=== PATIENT | male | born 1985 | race Two or more races ===

== ENCOUNTER 2017-04-10 23:51 | Emergency (ER) | payer OTHER ==
[~2017-04-10] VITALS: Ht 175.3 cm; Wt 108.9 kg
[2017-04-10 23:51] VITALS: BP 109/73
== END 2017-04-11 00:51 | disposition home or self-care (01) ==
LOC: ER 23:52
DX: M54.5 Low back pain (principal); M62.830 Muscle spasm of back; F17.200 Nicotine dependence, unspecified, uncomplicated; X50.0XXA Overexertion from strenuous movement or load, initial encounter; Y93.89 Activity, other specified; Y92.89 Other specified places as the place of occurrence of the external cause; Y99.0 Civilian activity done for income or pay
CPT/HCPCS: 99283; A4606; Z7610

== ENCOUNTER 2018-04-13 18:46 | Emergency (ER) | payer SELFPAY ==
[~2018-04-13] VITALS: Ht 175.3 cm; Wt 111.1 kg
[2018-04-13 19:30] VITALS: BP 134/92
[2018-04-13] MEDS ORDERED: KETOROLAC TROMETHAMINE INJ 30 MG/ML VIAL IM ONE (20:00)
[2018-04-13] MEDS ORDERED: KETOROLAC TROMETHAMINE INJ 30 MG/ML VIAL ONE (20:10)
== END 2018-04-13 20:19 | disposition home or self-care (01) ==
LOC: ER 18:47
DX: G44.209 Tension-type headache, unspecified, not intractable (principal); F17.210 Nicotine dependence, cigarettes, uncomplicated
CPT/HCPCS: A4606; J1885; Z7610

== ENCOUNTER 2019-01-02 10:41 | Emergency (ER) | payer SELFPAY ==
[~2019-01-02] VITALS: Ht 180.3 cm; Wt 108.9 kg
[2019-01-02 10:48] VITALS: BP 120/69
[2019-01-02] MEDS ORDERED: METHOCARBAMOL (500MG) 500 MG TABLET PO ONE (11:30)
[2019-01-02] MEDS ORDERED: IBUPROFEN 400 MG TABLET PO ONE (11:30)
[2019-01-02] MEDS ORDERED: METHOCARBAMOL (500MG) 500 MG TABLET ONE (11:58)
[2019-01-02] MEDS ORDERED: IBUPROFEN 400 MG TABLET ONE (11:58)
== END 2019-01-02 12:51 | disposition home or self-care (01) ==
LOC: ER 10:41
DX: M54.5 Low back pain (principal); R07.81 Pleurodynia; F17.200 Nicotine dependence, unspecified, uncomplicated
CPT/HCPCS: 71100-TC; 72100-TC

== ENCOUNTER 2020-10-26 11:25 | Emergency (ER) | payer SELFPAY ==
[~2020-10-26] VITALS: Ht 175.3 cm; Wt 72.6 kg
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
[2020-10-26] MEDS ORDERED: IBUP-1957 PO (12:27)
[2020-10-26] MEDS ORDERED: IBUPROFEN 600 MG TABLET PO ONE (12:30)
[2020-10-26] MEDS ORDERED: IBUPROFEN 600 MG TABLET ONE (12:32)
[2020-10-26 12:37] VITALS: BP 129/89
--- NOTE | 2020-10-26 12:38 | NUR ---
PT. VERBALIZED UNDERSTANDING OF AFTERCARE INSTRUCTIONS.Patient discharged to home in stable condition. Written and verbal after care instructions given. Patient verbalizes understanding of instruction.
[2020-10-26] MEDS ORDERED: ANESTHESIA TRAY IN PYXIS 1 EA TRAY MC ONE (15:45)
== END 2020-10-26 13:04 | disposition home or self-care (01) ==
LOC: ER 11:26
DX: S62.396A Other fracture of fifth metacarpal bone, right hand, initial encounter for closed fracture (principal); S62.397A Other fracture of fifth metacarpal bone, left hand, initial encounter for closed fracture; F17.200 Nicotine dependence, unspecified, uncomplicated; W22.8XXA Striking against or struck by other objects, initial encounter; Y93.89 Activity, other specified; Y92.89 Other specified places as the place of occurrence of the external cause; Y99.8 Other external cause status
CPT/HCPCS: 73130-TC

== ENCOUNTER 2020-10-30 03:02 | Emergency (ER) | payer SELFPAY ==
[~2020-10-30] VITALS: Ht 175.3 cm; Wt 117.0 kg
[~2020-10-30 03:02] MED LIST: IBUP-1957 PO
[2020-10-30 03:06] VITALS: BP 127/77
--- NOTE | 2020-10-30 03:20 | NUR ---
OLD ALIZE WARPPING REMOVED, AND APPLIED NEW ALIZE BANDAGES TO BILATERAL HANDS. BLOOD PERFUSION AND PULSE EQUAL AND STRONG BILATERALLY. NO DISCOLORATION NOTED.
[2020-10-30] MEDS ORDERED: OXYC-132 PO (03:21)
[2020-10-30] MEDS ORDERED: oxyCODONE/APAP (5/325 MG) 1 UDTAB TABLET ONE (03:23)
[2020-10-30] MEDS: oxyCODONE/APAP (5/325 MG) 1 UDTAB TABLET PO ONE (03:28)
--- NOTE | 2020-10-30 03:30 | NUR ---
Patient discharged to home in stable condition. Written and verbal after care instructions given. Patient verbalizes understanding of instruction.
== END 2020-10-30 03:30 | disposition home or self-care (01) ==
LOC: ER 03:02
DX: S62.396D Other fracture of fifth metacarpal bone, right hand, subsequent encounter for fracture with routine healing (principal); S62.397D Other fracture of fifth metacarpal bone, left hand, subsequent encounter for fracture with routine healing; F17.200 Nicotine dependence, unspecified, uncomplicated; W22.8XXD Striking against or struck by other objects, subsequent encounter

== ENCOUNTER 2020-11-08 21:59 | Emergency (ER) | payer SELFPAY ==
[~2020-11-08] VITALS: Ht 175.3 cm; Wt 117.0 kg
[~2020-11-08 21:59] MED LIST changes: +OXYC-132 PO
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
--- NOTE | 2020-11-08 23:45 | NUR ---
Patient discharged to home in stable condition. Written and verbal after care instructions given. Patient verbalizes understanding of instruction.Pt ambulatory with a steady gait
[2020-11-08 23:54] VITALS: BP 126/78
== END 2020-11-09 00:07 | disposition home or self-care (01) ==
LOC: ER 21:59
DX: S62.396D Other fracture of fifth metacarpal bone, right hand, subsequent encounter for fracture with routine healing (principal); S62.397D Other fracture of fifth metacarpal bone, left hand, subsequent encounter for fracture with routine healing; M79.641 Pain in right hand; F17.200 Nicotine dependence, unspecified, uncomplicated; W22.8XXD Striking against or struck by other objects, subsequent encounter
CPT/HCPCS: 73130-TC

== ENCOUNTER 2020-11-23 13:03 | Emergency (ER) | payer SELFPAY ==
[~2020-11-23] VITALS: Ht 175.3 cm; Wt 117.5 kg
[2020-11-23 13:12] VITALS: BP 118/72
--- NOTE | 2020-11-23 13:24 | NUR ---
Patient discharged to home in stable condition. Written and verbal after care instructions given. Patient verbalizes understanding of instruction.
== END 2020-11-23 13:23 | disposition home or self-care (01) ==
LOC: ER 13:03
DX: S43.431A Superior glenoid labrum lesion of right shoulder, initial encounter (principal); F17.200 Nicotine dependence, unspecified, uncomplicated; Z79.899 Other long term (current) drug therapy; X58.XXXA Exposure to other specified factors, initial encounter; Y93.89 Activity, other specified; Y92.89 Other specified places as the place of occurrence of the external cause; Y99.8 Other external cause status

== ENCOUNTER 2021-09-29 00:18 | Emergency (ER) | payer SELFPAY ==
[~2021-09-29] VITALS: Ht 175.3 cm; Wt 117.9 kg
--- NOTE | 2021-09-29 00:41 | NUR ---
pt bibs c/o ruq x 2 days. pt a/o x 4, rr even no sob noted.
--- NOTE | 2021-09-29 00:42 | NUR ---
BLOOD COLLECTED SENT TO LAB
[2021-09-29 00:43] VITALS: BP 128/70
--- NOTE | 2021-09-29 00:52 | NUR ---
US AT BEDSIDE
[2021-09-29] MEDS ORDERED: MORPHINE SULFATE INJ 2 MG/ML DISP.SYRIN IV ONE (01:00)
[2021-09-29 01:04] LABS: BASOPHILS # (AUTO) 0.1 K/uL (0.0-0.2); BASOPHILS % (AUTO) 0.5 % (0.0-2.0); EOSINOPHILS % (AUTO) 4.4 % (0.0-6.0); HEMATOCRIT 45 % (39-51); HEMOGLOBIN 15.1 g/dL (13.5-17.5); LYMPHOCYTES # (AUTO) 4.1 K/uL (0.8-4.8); LYMPHOCYTES % (AUTO) 32.2 % (20.0-44.0); MEAN CORPUSCULAR HGB CONC 34 g/dl (31.0-36.0); MEAN CORPUSCULAR VOLUME 85 fL (80-96); MONOCYTES # (AUTO) 0.9 K/uL (0.1-1.30); MONOCYTES % (AUTO) 7.1 % (2.0-12.0); NEUTROPHILS % (AUTO) 55.8 % (43.0-81.0); PLATELET COUNT (AUTO) 346 K/uL (150-450); RED BLOOD CELL COUNT(AUTO) 5.25 MIL/uL (4.5-6.0); WHITE BLOOD COUNT (AUTO) 12.6 K/uL (4.3-11.0)
[2021-09-29] MEDS ORDERED: MORPHINE SULFATE INJ 4 MG/ML DISP.SYRIN ONE (01:04)
[2021-09-29 01:16] LABS: CALCIUM, SERUM 9.1 mg/dL (8.5-10.1); POTASSIUM 3.8 mmol/L (3.5-5.1)
[2021-09-29 01:22] LABS: ALBUMIN 3.6 g/dL (3.4-5.0); BILIRUBIN,TOTAL 0.2 mg/dL (0.2-1.0); TOTAL PROTEIN, SERUM 7.7 g/dL (6.4-8.2)
[2021-09-29] MEDS ORDERED: KETO10TA2 PO (01:37)
--- NOTE | 2021-09-29 02:02 | NUR ---
Patient discharged to home in stable condition. Written and verbal after care instructions given. Patient verbalizes understanding of instruction. IV removed. Catheter intact and site benign. Pressure and 4x4 applied to site. No bleeding noted.
== END 2021-09-29 02:03 | disposition home or self-care (01) ==
LOC: ER 00:19
DX: R10.11 Right upper quadrant pain (principal); F17.200 Nicotine dependence, unspecified, uncomplicated
CPT/HCPCS: 36415; 76705; 80048; 80076; 83690; 85025; 96374; 99284; J2270

== ENCOUNTER 2021-10-03 00:31 | Emergency (ER) | payer SELFPAY ==
[~2021-10-03] VITALS: Ht 175.3 cm; Wt 117.9 kg
[~2021-10-03 00:31] MED LIST changes: +KETO10TA2 PO
[2021-10-03 01:12] VITALS: BP 121/72
[2021-10-03] MEDS ORDERED: ACYC-108 PO (01:33)
[2021-10-03] MEDS ORDERED: GABA-536 PO (01:33)
[2021-10-03] MEDS ORDERED: PRED50TA PO (01:33)
== END 2021-10-03 01:42 | disposition home or self-care (01) ==
LOC: ER 00:50
DX: B02.9 Zoster without complications (principal); F17.200 Nicotine dependence, unspecified, uncomplicated; Z79.899 Other long term (current) drug therapy

== ENCOUNTER 2021-10-04 18:07 | Emergency (ER) | payer SELFPAY ==
[~2021-10-04] VITALS: Ht 175.3 cm; Wt 117.9 kg
[2021-10-04 18:07] VITALS: BP 124/69
[~2021-10-04 18:07] MED LIST changes: +ACYC-108 PO; +GABA-536 PO; +PRED50TA PO
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
--- NOTE | 2021-10-04 18:37 | NUR ---
Patient discharged to home in stable condition. Written and verbal after care instructions given. Patient verbalizes understanding of instruction.
== END 2021-10-04 18:38 | disposition home or self-care (01) ==
LOC: ER 18:14
DX: B02.9 Zoster without complications (principal); F17.200 Nicotine dependence, unspecified, uncomplicated; Z79.899 Other long term (current) drug therapy

== ENCOUNTER 2025-03-07 00:41 | Emergency (ER) | payer MEDICAID ==
[~2025-03-07] VITALS: Ht 175.3 cm; Wt 113.4 kg
[2025-03-07] MEDS ORDERED: IBUP-1957 PO (01:25)
[2025-03-07] MEDS ORDERED: IBUPROFEN 400 MG TABLET ONE (01:33)
[2025-03-07] MEDS: IBUPROFEN 400 MG TABLET PO ONE (01:36)
[2025-03-07 03:25] VITALS: BP 124/77; TEMP 98.4; O2SAT 99
== END 2025-03-07 03:26 | disposition home or self-care (01) ==
LOC: ER 00:53
DX: M25.562 Pain in left knee (principal); M25.552 Pain in left hip; F17.200 Nicotine dependence, unspecified, uncomplicated; Z79.1 Long term (current) use of non-steroidal anti-inflammatories (NSAID); Z79.52 Long term (current) use of systemic steroids; Z79.899 Other long term (current) drug therapy
CPT/HCPCS: 73502; 73564-TC